=== PATIENT | male | born 1940 | race Caucasian/White ===

== ENCOUNTER 2017-12-11 15:13 | Emergency (ER) | payer OTHER, MEDICARE ==
[~2017-12-11] VITALS: Ht 188 cm; Wt 113.7 kg
[~2017-12-11 15:13] MED LIST: ACETAMINOP-CODEI5 ML PO; ALLOPURINOL100 MG PO; CARVEDILOL6.25 MG PO; DOXYCYCLINE HY100 M3 PO; FUROSEMIDE20 MG PO; GLIMEPIRIDE1 MG PO; LOSARTAN POTAS100 MG PO
[2017-12-11 16:45] LABS: HEMATOCRIT 35.8 % (38.0-50.0); HEMOGLOBIN 12.1 G/DL (12.5-16.6); MCH 33.4 PG (29.0-34.0); MCHC 33.8 G/DL (30.0-36.0); MCV 98.9 FL (86-99); PLATELET COUNT 146 K/uL (156-360); RBC DIS.WIDTH-CV 12.8 % (11.8-14.6); RBC DIS.WIDTH-SD 46.3 % (39-53); RED BLOOD COUNT 3.62 M/uL (4.00-5.50); WHITE BLOOD COUNT 6.6 K/uL (4.1-10.2)
[2017-12-11 16:58] LABS: CHLORIDE 105 mEq/L (99-109); POTASSIUM 3.8 mEq/L (3.7-5.4); SODIUM 141 mEq/L (136-147)
[2017-12-11 16:59] LABS: GLUCOSE 99 mg/dL (70-99)
[2017-12-11 17:03] LABS: CREATININE 1.2 mg/dL (0.6-1.3); GFR ESTIMATE (CALCULATED) > 59 mL/min/ (58.99-99999)
[2017-12-11 17:04] LABS: UREA NITROGEN (BUN) 17 mg/dL (9-23)
[2017-12-11] MEDS ORDERED: BACTRIM,SEPT1 TABLET PO (17:29)
[2017-12-11 17:39] VITALS: BP 114/77
== END 2017-12-11 17:40 | disposition home or self-care (01) ==
LOC: RME 15:13 → EME 15:13 → RME 17:40
PROVIDERS: Physician Assistant Medical
DX: L03.116 Cellulitis of left lower limb (principal); E11.9 Type 2 diabetes mellitus without complications; I10 Essential (primary) hypertension; E78.5 Hyperlipidemia, unspecified; K21.9 Gastro-esophageal reflux disease without esophagitis; Z87.891 Personal history of nicotine dependence
CPT/HCPCS: 80048; 83605; 85027; 87040; 99281; 99284